=== PATIENT | female | born 1975 | race Caucasian/White ===

== ENCOUNTER 2024-06-22 13:02 | Inpatient (IN) ==
[2024-06-22 15:30] LABS: ABS Basophils 0.1 10^3/uL (0.0-0.1); ABS Eosinophils 0.1 10^3/uL (0.0-0.5); ABS Lymphocytes 2.2 10^3/uL (1.0-4.8); ABS Monocytes 0.7 10^3/uL (0.0-0.9); ABS Neutrophils 8.5 10^3/uL (1.5-7.6); Eosinophil % 0.6 %; Hematocrit 43.4 % (35-45); Hemoglobin 14.6 g/dL (11.5-14.3); Lymphocyte % 19.3 %; Mean Corpuscular Hemoglobin 30.9 pg (27-33); Mean Corpuscular Hgb Conc 33.6 g/dL (31-36); Mean Corpuscular Volume 92.2 fL (80-97); Mean Platelet Volume 8.8 fL (7.5-11.2); Platelet Count 261 10^3/uL (150-450); Red Cell Distribution Width 13.9 % (12-17); White Blood Count 11.5 10^3/uL (3.8-11.8)
[2024-06-22 15:43] LABS: Urine Appearance Clear; Urine Bilirubin Negative (Negative); Urine Blood Negative (Negative); Urine Color Light-Yellow; Urine Glucose Negative (Negative); Urine Ketones Negative (Negative); Urine Nitrite Negative (Negative); Urine Protein Negative (Negative); Urine Specific Gravity 1.008 (1.002-1.030); Urine Urobilinogen Negative (Negative)
[2024-06-22 15:58] LABS: Urine Benzodiazepine Screen None Detected (None Detect); Urine Cannabinoids Screen Presumptive Positive (None Detect); Urine Opiates Screen None Detected (None Detect)
[2024-06-22 16:23] LABS: ALT 11 U/L (7-52); AST 16 U/L (13-39); Acetaminophen < 15 mcg/mL; Albumin 4.5 g/dL (3.2-5.2); Alcohol, S < 13 mg/dL (<13); Alkaline Phosphatase 54 U/L (35-149); Blood Urea Nitrogen 8 mg/dL (6-24); CO2 Carbon Dioxide 26 mmol/L (22-32); Creatinine, Serum 0.92 mg/dL (0.51-0.95); Globulin 2.3 g/dL (2-4); Glucose 103 mg/dL (70-100); Potassium 4.1 mmol/L (3.5-5.0); Salicylate < 2.50 mg/dL (<30); Total Bilirubin 0.4 mg/dL (0.2-1.0); Total Protein 6.8 g/dL (6.4-8.9); eGFR CKD-EPI 76.8 (>60)
[2024-06-22 16:24] LABS: HCG Pregnancy < 0.60 mIU/mL
[2024-06-22 16:33] LABS: TSH Ultra Thyroid Stim Horm 1.19 mcIU/mL (0.34-5.60)
[2024-06-22] MEDS: Nicotine PATCH 21 MG/24 HR PATCH TRANSDERM ONE (22:25)
[2024-06-22] MEDS: Nicotine PATCH 14 MG/24 HR PATCH TRANSDERM ONE (22:37)
[2024-06-22] MEDS: Al Hydrox/Mg Hydrox/Simet LIQ 30 ML UDC PO PRN (22:37)
[2024-06-23] MEDS: Vitamin THERAPEUTIC TAB PO SCH (09:26)
[2024-06-23] MEDS ORDERED: Omeprazole 20 mg CAP (NF) PO SCH (21:00)
[2024-06-23 22:47] LABS: High Sensitivity Troponin 1 Hr 14 pg/mL (<15)
[2024-06-24] MEDS: Nicotine PATCH 21 MG/24 HR PATCH TRANSDERM SCH (09:36)
[2024-06-24 10:11] LABS: HDL Cholesterol 33.4 mg/dL
[2024-06-25 09:47] LABS: Anion Gap 9 mmol/L (2-16); Chloride 104 mmol/L (101-111); Sodium 139 mmol/L (135-145)
[2024-06-27] MEDS: Polyethylene Glycol 3350 17 GM PACKET PO ONE (16:12)
[2024-06-27 20:28] VITALS: BP 134/84
[2024-06-28] MEDS: Ondansetron ODT 4 mg TAB 4 MG TAB SL PRN (12:51)
[2024-06-28] MEDS: COVID VAC 24-25 (12+) (Moderna) Syringe 0.5 mL IM ONE (15:50)
[2024-06-28] MEDS: Influenza Vaccine *TRI* 2024-25* 0.5 ML SYRINGE IM ONE (15:51)
== END 2024-06-28 16:30 | disposition home or self-care (01) | DRG 753 ==
LOC: ED 13:02 → EDHOLD 21:25 → BSU 22:18
PROVIDERS: ADMIT Psychiatry & Neurology Psychiatry; ATTEND Psychiatry & Neurology Psychiatry